=== PATIENT | female | born 1945 | race Caucasian/White ===

== ENCOUNTER → 2016-12-06 | Outpatient (CLI) | payer OTHER | LOC: BHLMT 13:30 | PROVIDERS: ATTEND Internal Medicine Interventional Cardiology | DX: R06.02 Shortness of breath (principal); E78.00 Pure hypercholesterolemia, unspecified; I10 Essential (primary) hypertension; R01.1 Cardiac murmur, unspecified; I35.0 Nonrheumatic aortic (valve) stenosis | CPT/HCPCS: 93005-PO ==

== ENCOUNTER → 2016-12-19 | Outpatient (CLI) | payer OTHER | LOC: BHLMT 09:15 | PROVIDERS: ATTEND Internal Medicine Interventional Cardiology | DX: R06.02 Shortness of breath (principal); I10 Essential (primary) hypertension; I35.0 Nonrheumatic aortic (valve) stenosis | CPT/HCPCS: 93306-PO ==

== ENCOUNTER → 2018-02-04 | Outpatient (CLI) | payer OTHER | LOC: BHFA 10:00 | PROVIDERS: ATTEND Internal Medicine Cardiovascular Disease | DX: I35.9 Nonrheumatic aortic valve disorder, unspecified (principal); I10 Essential (primary) hypertension ==